=== PATIENT | female | born 1960 | race African-American/Black ===

== ENCOUNTER 2016-04-04 15:07 | Emergency (ER) | payer MEDICAID | END 2016-04-04 18:20 | disposition home or self-care (01) | LOC: D.ER 15:07 | DX: J34.0 Abscess, furuncle and carbuncle of nose (principal) ==

== ENCOUNTER 2016-04-06 09:42 | Emergency (ER) | payer MEDICAID ==
[2016-04-06 11:35] LABS: BASOPHILS 0.3 % (0.0-2.0); EOSINOPHILS 1.2 % (0-7); HEMOGLOBIN 11.4 g/dL (12-16); IMMATURE GRANULOCYTES 0.2 % (0-5); LYMPHOCYTES 10.9 % (15-50); MCHC 32.6 g/dL (31.0-37.0); MCV 82.7 fL (80.0-100.0); NEUTROPHILS 79.4 % (40-80); PLATELET COUNT 270 10x3/uL (130-400); RBC 4.23 10x6/uL (4.00-5.40); RDW 13.1 % (11.5-14.5); WBC 13.4 10x3/uL (4.8-10.8)
[2016-04-06 11:49] LABS: ALBUMIN 3.9 g/dL (3.4-5.0); ALKALINE PHOSPHATASE 128 U/L (46-116); ALT (SGPT) 34 U/L (10-68); BILIRUBIN - TOTAL 0.51 mg/dL (0.2-1.3); CALC OSMOLALITY 280 mosm/kg (275-300); CALCIUM 9.5 mg/dL (8.5-10.1); CARBON DIOXIDE 26.5 mmol/L (21.0-32.0); CHLORIDE - SERUM 105 mmol/L (98-107); CREATININE - SERUM 0.7 mg/dL (0.6-1.3); GLUCOSE 102 mg/dL (74-106); POTASSIUM - SERUM 3.9 mmol/L (3.5-5.1); PROTEIN - SERUM 7.8 g/dL (6.4-8.2); SODIUM 142 mmol/L (136-145); UREA NITROGEN 7 mg/dL (7-18); eGFR NON AFRICAN AMERICAN > 90 mL/min (90-120)
== END 2016-04-06 15:42 | disposition home or self-care (01) ==
LOC: D.ER 09:42
PROVIDERS: Nurse Practitioner Family
DX: L03.211 Cellulitis of face (principal); F32.9 Major depressive disorder, single episode, unspecified

== ENCOUNTER → 2016-05-13 10:20 | Outpatient (CLI) | payer MEDICAID | END | disposition home or self-care (01) | LOC: D.CT 10:20 | DX: L03.90 Cellulitis, unspecified (principal) ==

== ENCOUNTER → 2016-10-05 10:11 | Outpatient (CLI) | payer OTHER | END | disposition home or self-care (01) | LOC: D.RAD 10:11 | DX: Z02.71 Encounter for disability determination (principal) ==

== ENCOUNTER 2017-05-26 14:36 | Emergency (ER) | payer MEDICAID ==
[2017-05-26 15:25] LABS: BASOPHILS 0.6 % (0-2); EOSINOPHILS 0.8 % (0-7); HEMATOCRIT 36.7 % (36.0-48.0); HEMOGLOBIN 12.1 g/dL (12-16); IMMATURE GRANULOCYTES 0.2 % (0-5); LYMPHOCYTES 19.6 % (15-50); MCH 26.9 pg (26.0-34.0); MCV 81.6 fL (80.0-100.0); MEAN PLATELET VOLUME 11.1 fL (7.4-10.4); MONOCYTES 8.1 % (2-11); NEUTROPHILS 70.7 % (40-80); PLATELET COUNT 240 10x3/uL (130-400); RDW 13.1 % (11.5-14.5); WBC 8.5 10x3/uL (4.8-10.8)
[2017-05-26 15:44] LABS: ALBUMIN 4.4 g/dL (3.4-5.0); ALKALINE PHOSPHATASE 103 U/L (46-116); ALT (SGPT) 29 U/L (10-68); BILIRUBIN - TOTAL 0.38 mg/dL (0.2-1.3); CALC OSMOLALITY 274 mosm/kg (275-300); CALCIUM 9.5 mg/dL (8.5-10.1); CARBON DIOXIDE 26.2 mmol/L (21.0-32.0); CHLORIDE - SERUM 102 mmol/L (98-107); CREATININE - SERUM 0.6 mg/dL (0.6-1.3); GLUCOSE 98 mg/dL (74-106); POTASSIUM - SERUM 4.9 mmol/L (3.5-5.1); PROTEIN - SERUM 8.2 g/dL (6.4-8.2); SODIUM 138 mmol/L (136-145); UREA NITROGEN 9 mg/dL (7-18); eGFR NON AFRICAN AMERICAN > 90 mL/min (90-120)
[2017-05-26 16:09] LABS: CKMB 0.5 U/L (0.0-3.6); CREATINE KINASE 156 UL (21-215)
[2017-05-26 16:10] LABS: TROPONIN-I < 0.017 ng/mL (0.000-0.060)
== END 2017-05-26 18:42 | disposition home or self-care (01) ==
LOC: D.ER 14:36
PROVIDERS: Emergency Medicine; Physician Assistant
DX: R07.81 Pleurodynia (principal); J06.9 Acute upper respiratory infection, unspecified; J40 Bronchitis, not specified as acute or chronic; M06.9 Rheumatoid arthritis, unspecified

== ENCOUNTER 2017-11-09 17:55 | Emergency (ER) | payer SELFPAY ==
[~2017-11-09] VITALS: Ht 154.9 cm; Wt 53.6 kg
[2017-11-09 18:05] VITALS: Ht 154.9 cm; Wt 53.6 kg
[2017-11-09] MEDS ORDERED: ARAVA10 MG PO (18:06)
[2017-11-09] MEDS ORDERED: ZANAFLEX4 MG PO (18:06)
[2017-11-09] MEDS ORDERED: ENBREL25 MG/0.5 SQ (18:07)
[2017-11-09] MEDS ORDERED: ULTRAM50 MG PO (18:07)
[2017-11-09 19:37] LABS: BASOPHILS 0.2 % (0-2); HEMATOCRIT 35.7 % (36.0-48.0); HEMOGLOBIN 11.9 g/dL (12-16); IMMATURE GRANULOCYTES 0.3 % (0-5); LYMPHOCYTES 12.3 % (15-50); MCH 27.3 pg (26.0-34.0); MCHC 33.3 g/dL (31.0-37.0); MCV 81.9 fL (80.0-100.0); MEAN PLATELET VOLUME 10.5 fL (7.4-10.4); MONOCYTES 6.5 % (2-11); NEUTROPHILS 77.7 % (40-80); PLATELET COUNT 234 10x3/uL (130-400); RBC 4.36 10x6/uL (4.00-5.40); RDW 13.2 % (11.5-14.5); WBC 13.2 10x3/uL (4.8-10.8)
[2017-11-09 20:07] LABS: ALBUMIN 4.4 g/dL (3.4-5.0); ALKALINE PHOSPHATASE 115 U/L (46-116); ALT (SGPT) 13 U/L (10-68); BILIRUBIN - TOTAL 0.27 mg/dL (0.2-1.3); CALC OSMOLALITY 283 mosm/kg (275-300); CALCIUM 9.5 mg/dL (8.5-10.1); CARBON DIOXIDE 25.5 mmol/L (21.0-32.0); CHLORIDE - SERUM 107 mmol/L (98-107); CREATININE - SERUM 0.8 mg/dL (0.6-1.3); GLUCOSE 102 mg/dL (74-106); POTASSIUM - SERUM 3.5 mmol/L (3.5-5.1); PROTEIN - SERUM 8.1 g/dL (6.4-8.2); SODIUM 143 mmol/L (136-145); UREA NITROGEN 11 mg/dL (7-18); eGFR NON AFRICAN AMERICAN 79 mL/min (90-120)
[2017-11-09 20:13] LABS: AMYLASE - SERUM 68 U/L (25-115); C-REACTIVE PROTEIN 0.6 mg/dL (0.0-0.9); CKMB 0.7 U/L (0.0-3.6); CREATINE KINASE 95 UL (21-215); LIPASE 101 U/L (73-393); PRO BNP 64 pg/mL (0-125); THYROID STIMULATING HORMONE 2.21 uIU/mL (0.36-3.74)
[2017-11-09 20:18] LABS: TROPONIN-I < 0.017 ng/mL (0.000-0.060)
[2017-11-09 22:16] LABS: APPEARANCE CLEAR (CLEAR); BILIRUBIN NEGATIVE (NEGATIVE); COLOR YELLOW (YELLOW); GLUCOSE NEGATIVE (NEGATIVE); KETONE NEGATIVE (NEGATIVE); NITRITE NEGATIVE (NEGATIVE); PROTEIN NEGATIVE (NEGATIVE); SPECIFIC GRAVITY 1.015 (1.005-1.020); UROBILINOGEN NORMAL (NORMAL)
[2017-11-09 22:17] LABS: BACTERIA FEW /hpf (NONE SEEN); EPITHELIAL CELLS 0-5 /hpf (0-5); RED CELLS - URINE 0-5 /hpf (0-5)
[2017-11-09 22:31] LABS: UDS - AMPHET NEGATIVE QUAL (NEGATIVE); UDS - BARB NEGATIVE QUAL (NEGATIVE); UDS - BENZO NEGATIVE QUAL (NEGATIVE); UDS - COCAINE NEGATIVE QUAL (NEGATIVE); UDS - OPIATE NEGATIVE QUAL (NEGATIVE); UDS - PCP NEGATIVE QUAL (NEGATIVE); UDS - THC POSITIVE QUAL (NEGATIVE)
[2017-11-10 02:27] VITALS: BP 145/79
[2017-11-10] MEDS ORDERED: TORADOL10 MG PO (23:22)
== END 2017-11-10 02:25 | disposition home or self-care (01) ==
LOC: D.ER 17:55
PROVIDERS: Emergency Medicine; Family Medicine
DX: S43.402A Unspecified sprain of left shoulder joint, initial encounter (principal); W18.30XA Fall on same level, unspecified, initial encounter; Y93.89 Activity, other specified; Y92.019 Unspecified place in single-family (private) house as the place of occurrence of the external cause

== ENCOUNTER 2017-11-10 20:26 | Emergency (ER) | payer SELFPAY ==
[~2017-11-10] VITALS: Ht 154.9 cm; Wt 63.6 kg
[~2017-11-10 20:26] MED LIST: ARAVA10 MG PO; ENBREL25 MG/0.5 SQ; ULTRAM50 MG PO; ZANAFLEX4 MG PO
[2017-11-10 20:55] VITALS: Ht 154.9 cm; Wt 63.6 kg
[2017-11-10 22:07] LABS: BASOPHILS 0.2 % (0-2); EOSINOPHILS 5.4 % (0-7); HEMATOCRIT 32.9 % (36.0-48.0); HEMOGLOBIN 10.8 g/dL (12-16); IMMATURE GRANULOCYTES 0.2 % (0-5); LYMPHOCYTES 20.6 % (15-50); MCH 26.9 pg (26.0-34.0); MCHC 32.8 g/dL (31.0-37.0); MEAN PLATELET VOLUME 10.5 fL (7.4-10.4); MONOCYTES 7.6 % (2-11); PLATELET COUNT 246 10x3/uL (130-400); RBC 4.01 10x6/uL (4.00-5.40); RDW 13.3 % (11.5-14.5)
[2017-11-10 22:11] LABS: ALBUMIN 3.9 g/dL (3.4-5.0); ALKALINE PHOSPHATASE 94 U/L (46-116); ALT (SGPT) 15 U/L (10-68); BILIRUBIN - TOTAL 0.28 mg/dL (0.2-1.3); CALC OSMOLALITY 282 mosm/kg (275-300); CALCIUM 8.6 mg/dL (8.5-10.1); CARBON DIOXIDE 27.3 mmol/L (21.0-32.0); CHLORIDE - SERUM 106 mmol/L (98-107); CREATININE - SERUM 0.7 mg/dL (0.6-1.3); GLUCOSE 101 mg/dL (74-106); POTASSIUM - SERUM 3.2 mmol/L (3.5-5.1); PROTEIN - SERUM 7.2 g/dL (6.4-8.2); SODIUM 143 mmol/L (136-145); eGFR NON AFRICAN AMERICAN > 90 mL/min (90-120)
[2017-11-10 22:14] LABS: UREA NITROGEN 8 mg/dL (7-18)
[2017-11-10 22:58] LABS: APPEARANCE SL CLDY (CLEAR); BILIRUBIN NEGATIVE (NEGATIVE); COLOR YELLOW (YELLOW); GLUCOSE NEGATIVE (NEGATIVE); KETONE NEGATIVE (NEGATIVE); NITRITE NEGATIVE (NEGATIVE); PROTEIN NEGATIVE (NEGATIVE); SPECIFIC GRAVITY 1.015 (1.005-1.020); UROBILINOGEN NORMAL (NORMAL)
[2017-11-10 22:59] LABS: BACTERIA MODERATE /hpf (NONE SEEN); EPITHELIAL CELLS 0-5 /hpf (0-5); RED CELLS - URINE 0-5 /hpf (0-5)
[2017-11-10] MEDS ORDERED: TORADOL10 MG PO (23:22)
[2017-11-11 00:04] VITALS: BP 142/91
== END 2017-11-11 00:04 | disposition home or self-care (01) ==
LOC: D.ER 20:26
PROVIDERS: Emergency Medicine
DX: S43.402A Unspecified sprain of left shoulder joint, initial encounter (principal); W18.30XA Fall on same level, unspecified, initial encounter; Y93.89 Activity, other specified; Y92.019 Unspecified place in single-family (private) house as the place of occurrence of the external cause

== ENCOUNTER → 2018-01-21 19:11 | Outpatient (CLI) | payer MEDICAID ==
[2017-11-10 20:55] VITALS: BMI 26.5
[~2018-01-21 19:11] MED LIST changes: +TORADOL10 MG PO; +ZOLOFT50 MG PO
[2018-01-27 08:00] VITALS: BMI 25.5
== END | disposition home or self-care (01) ==
LOC: D.LABREF 19:11
DX: R31.9 Hematuria, unspecified (principal)

== ENCOUNTER → 2018-01-27 07:25 | Day surgery (SDC) | payer MEDICAID ==
[2018-01-26 08:33] LABS: HEMATOCRIT 36.5 % (36.0-48.0); HEMOGLOBIN 11.9 g/dL (12-16); MCH 27.8 pg (26.0-34.0); MCHC 32.6 g/dL (31.0-37.0); MCV 85.3 fL (80.0-100.0); MEAN PLATELET VOLUME 10.4 fL (7.4-10.4); RBC 4.28 10x6/uL (4.00-5.40); RDW 14.4 % (11.5-14.5); WBC 10.4 10x3/uL (4.8-10.8)
[~2018-01-27] VITALS: Ht 154.9 cm; Wt 61.2 kg
--- NOTE | ~2018-01-27 | OP ---
PATIENT NAME: OTTO OCONNELL MEDICAL RECORD: [id number] :62 LOCATION:.[facility]ERLY [facility] ADMISSION DATE: SURGEON: DICK FUCHS MD DATE OF OPERATION: 01/27/2018 SURGEON: Dick Fuchs MD ANESTHESIA: TIVA by Dr. Jame Guerrero. DIAGNOSES: Microscopic hematuria and interstitial cystitis. PROCEDURES: Cystoscopy and intravesical Rimso instillation. FINDINGS: Single ureteral orifices bilaterally. Diffuse bladder inflammation with glomerulations. No bladder tumors. BLOOD LOSS: None. CLINICAL HISTORY: This is a 57-year-old female, who was referred for microscopic hematuria. She has never seen any gross hematuria. She has to void every 40 minutes during the daytime and she has nocturia greater than 5. She has urgency without urge incontinence. She has suprapubic and lower back pain, which is worse just prior to voiding. The symptoms are exacerbated by her menstrual periods. This was before her hysterectomy in the . She also notes that coffee makes her symptoms much worse. She had urine cytology sent and this showed no tumor cells. She does have a CT scan of the abdomen and pelvis scheduled for the hematuria workup. Today, she comes for cystoscopy to complete the hematuria workup. If we see bladder inflammation suggestive of interstitial cystitis, I will proceed with treatment with intravesical Rimso. The patient is not allergic to any medications. She was given Ancef IV client onboarding analyst to the OR. DESCRIPTION OF PROCEDURE: The patient was given IV sedation. She was placed in the dorsal lithotomy position. A 17-Citizen [place] cystoscope with 30-degree lens was used for visualization. Findings are as outlined above. The patient actually reacted quite violently to having her bladder filled with saline. She started to try to move on the OR table while she was sedated. The bladder was emptied through the cystoscope sheath and then the scope was removed. We then inserted the 14-Citizen [place] red rubber catheter and inserted the 50 mL of Rimso solution into the bladder. The catheter was removed, leaving the solution in place. The patient will hold the solution in for 15 minutes and then void it out. She will be seen in the office next week to have treatment #2 given to her. TRANSINT:[id number] Voice Confirmation ID: [id number] DOCUMENT ID: [id number] DICK FUCHS MD at 1143 CC: [id number] DICTATION DATE: 01/27/18 0947 POLE SHAVER HELPER: 01/27/18 1008 [address] [place] [id number] [place] [id number]
[2018-01-27 08:00] VITALS: BP 144/73; Ht 154.9 cm; Wt 61.2 kg
== END | disposition home or self-care (01) ==
LOC: D.OPS 07:25 → D.PAN 11:45 → D.OPS 11:45
PROVIDERS: Anesthesiology
DX: R31.29 Other microscopic hematuria (principal); N30.11 Interstitial cystitis (chronic) with hematuria; Z01.812 Encounter for preprocedural laboratory examination

== ENCOUNTER → 2018-03-28 08:30 | Outpatient (CLI) | payer MEDICAID ==
[2018-01-27 08:00] VITALS: BMI 25.5
[~2018-03-28 08:30] MED LIST changes: +LOPRESSOR25 MG PO
== END | disposition home or self-care (01) ==
LOC: D.HCCARDIO 08:30
DX: I20.9 Angina pectoris, unspecified (principal)

== ENCOUNTER 2018-04-01 10:27 | Outpatient (CLI) | payer MEDICAID ==
[~2018-04-01] VITALS: Ht 154.9 cm; Wt 60.9 kg
--- NOTE | ~2018-04-01 | HEMODYNAMI ---
PATIENT:OTTO OCONNELL MEDICAL RECORD: [id number] : 62 LOCATION:[facility] ADMISSION DATE: 04/01/18 Generatedon:04/01/201813:17 Patient name: OTTO OCONNELL Patient #: [id number] SSN: : 1960 Date of study: 04/01/2018 Page: Of Hemodynamic Procedure Report Patient Data Patient Demographics Procedure consent was obtained First Name: OTTO Gender: Female Last Name: ANISH : 1960 [facility] Initial: L Age: 57 year(s) Patient #: [id number] Race: Black Additional ID: [id number] Contact details Address: [address] [place] [address] State: [place] [facility] [place]: [address] Admission Admission Data Admission Date: 04/01/2018 Admission Time: 10:27 Weight (lbs.): 134.48 Weight (kg.): 61 Lab Results Lab Result Date: 04/01/2018 Lab Result Time: 0:00 Biochemistry Name Units Result Min Max BUN mg/dl 14 --(--*-)-- 7 18 Creatinine mg/dl 0.7 --(*---)-- 0.6 1.3 CBC Name Units Result Min Max Hemoglobin g/dl 12.2 *-(----)-- 13.5 17.5 Procedure Procedure Types Cath Procedure Diagnostic Procedure C [facility] w/Coronaries Procedure Description Procedure Date Procedure Date: 04/01/2018 Procedure Start Time: 13:00 Procedure End Time: 13:13 Procedure Staff Name Function Neville Castro RT Monitor Tete Stack RT Scrub Saumya Moya RN Nurse Juan Goldberg RN Sole Rounder Arnav Alfonso MD Performing Physician Procedure Data Cath Procedure Fluoroscopy Diagnostic fluoroscopy Total fluoroscopy Time: 1.6 time: 1.6 min min Diagnostic fluoroscopy Total fluoroscopy dose: 263 dose: 263 mGy mGy Contrast Material Contrast Material Type Amount (ml) Isovue 300 54 Entry Location Entry Primary Successful Side Size Upsize Upsize Entry Closure Avilez ccessful Closure Location (Fr) 1 (Fr) 2 (Fr) Remarks Device Remarks Radial Right 6 Fr Mechanical artery Short Compression Estimated blood loss: 10 ml Diagnostic catheters Device Type Used For End Catheter Placement DIAGNOSTIC Elbridge 110cm 5 Procedure Fr catheter ([id number]) Procedure Complications No complications Procedure Medications Medication Administration Route Dosage Oxygen etCO2 Nasal cannula 2 l/min Lidocaine 2% added to field 20 Heparin Flush Bag added to field 2 bags (1000units/500ml NS) 0.9% NaCl I.V. 100 ml/hr Radial Cocktail added to field 1 syringe (Verapomil 2mg/Nitro 400mcg/Heparin 1500units) Versed I.V. 2 mg Fentanyl I.V. 50 mcg Versed I.V. 2 mg Fentanyl I.V. 50 mcg Versed I.V. 1 mg Fentanyl I.V. 50 mcg Versed I.V. 1 mg Fentanyl I.V. 50 mcg Hemodynamics Rest HGB: 12.2 (g/dl) Heart Rate: 78 (bpm) Pressure Samples Time Site Value (mmHg) Purpose Heart Use Rate(bpm) 13:05 LV 119/-6,8 Snapshot 84 13:06 AO 91/49(70) Pullback 89 13:06 LV 116/-4,5 Pullback 89 13:07 AO 87/54(69) Snapshot 82 Gradients Valve Time Site 1 Site 2 Mean SEP/DFP Peak To Heart Use (mmHg) (sec/min) Peak Rate (mmHg) (bpm) Aortic 13:06 LV AO 21 10 25 89 116/-4,5 91/49(70) Calculations Valve P-P Mean Valve Index Valve Source Name Gradient Area Flow (cm2) Aortic 25 21 25 21 Snapshots Pre Cath Intra NCS Post Cath Vital Signs Time Heart Resp SPO2 etCO2 NIBP (mmHg) Rhythm Pain Sedation Rate (ipm) (%) (mmHg) Status Level (bpm) 12:52:32 83 16 92 35.8 123/87(106) NSR 0 (11) 10(A) , No pain 12:56:33 77 19 99 0 123/84(103) NSR 0 (11) 10(A) , No pain 13:00:39 72 19 99 32.8 121/71(98) NSR 0 (11) 10(A) , No pain 13:04:45 82 17 98 24.6 97/68(79) NSR 0 (11) 9(A) , No pain 13:08:47 79 15 96 30.5 97/58(77) NSR 0 (11) 9(A) , No pain 13:12:48 77 16 97 35 100/58(75) NSR 0 (11) 10(A) , No pain Medications Time Medication Route Dose Verified Delivered Reason Notes Effectiveness by by 12:52:06 Oxygen etCO2 2 l/min Arnav Buffie used for Nasal Kaden Moya RN procedure cannula 12:53:07 Lidocaine 2% added 20ml Arnav Ranav for to vial Kaden Alfonso MD vasodilation field 12:53:15 Heparin Flush added 2 bags Arnav Arnav used for Bag to Kaden Alfonso MD procedure (1000units/500ml field NS) 12:53:27 0.9% NaCl I.V. 100 Arnav Buffie Per ml/hr Kaden Moya RN physician 12:54:57 Versed I.V. 2 mg Arnav Buffie for sedation Kaden Moya RN 12:55:02 Fentanyl I.V. 50 mcg Arnav Buffie for sedation Kaden Moya RN 13:00:02 Versed I.V. 2 mg Arnav Buffie for sedation Kaden Moya RN 13:00:05 Fentanyl I.V. 50 mcg Arnav Buffie for sedation Kaden Moya RN 13:04:37 Versed I.V. 1 mg Arnav Buffie for sedation Kaden Moya RN 13:04:41 Fentanyl I.V. 50 mcg Arnav Buffie for sedation Kaden Moya RN 13:04:45 Radial Cocktail added 1 Arnav Arnav for (Verapomil to syringe Kaden Alfonso MD vasodilation 2mg/Nitro field 400mcg/Heparin 1500units) 13:08:28 Versed I.V. 1 mg Arnav Buffie for sedation Kaden Moya RN 13:08:40 Fentanyl I.V. 50 mcg Arnav Buffie for sedation Kaden Moya RN Procedure Log Time Note 12:25:58 Juan Goldberg RN sent for patient. Start room use. 12:36:59 Time tracking: Regular hours (M-F 7:00 - 5:00) 12:37:03 Plan of Care:Hemodynamics will remain stable., Cardiac rhythm will remain stable., Comfort level will be maintained., Respiratory function will remain adequate., Patient/ family verbilizes understanding of procedure., Procedure tolerated without complication., Recovers from procedure without complications.. 12:39:22 Patient received from Pre/Post Procedure Room to CCL 2 Alert and oriented. Tansferred to table in Supine position. 12:39:23 Warm blankets applied, and levar hugger turned on for patient comfort. 12:39:24 Correct patient and procedure confirmed by team. 12:39:26 Signed procedure consent form obtained from patient. 12:39:26 ECG and BP/O2 sat monitors applied to patient. 12:51:27 Vital chart was started 12:51:30 Rhythm: sinus rhythm 12:51:32 Full Disclosure recording started 12:51:41 H&P Date Dictated: 03/16/2018 Within 30 days and on chart., H&P Addendum completed by physician on day of procedure. (MUST COMPLETE FOR ALL OUTPATIENTS). 12:51:42 Pre-procedure instructions explained to patient. 12:51:42 Pre-op teaching completed and patient verbalized understanding. 12:51:45 Family in waiting room. 12:51:46 Patient NPO since Midnight. 12:51:47 Is the patient allergic to Iodine/contrast media? No. 12:51:49 Is patient on blood thinner?No 12:51:51 Patient diabetic? No. 12:51:53 Patient not . Patient has had hysterectomy. 12:51:55 Previous problem with sedation/anesthesia? No ? 12:51:56 Snore? Yes 12:51:57 Sleep apnea? No 12:51:58 Deviated septum? No 12:51:59 Opens mouth fully? Yes 12:52:00 Sticks out tongue? Yes 12:52:02 Airway obstruction? No ? 12:52:04 Dentures? No ? 12:52:06 Oxygen 2 l/min etCO2 Nasal cannula was administered by Saumya Moya RN; used for procedure; 12:52:09 Pre procedure: right dorsailis pedis pulse 1+ Palpable, but thready & weak; easily obliterated 12:52:12 Modified Braulio's test Ulnar < 7 seconds 12:52:15 Patient pain scale 0/10 ?. 12:52:23 IV patent on arrival in left forearm with 0.9% NaCl at KVO. 12:52:25 Lab results completed and on chart. 12:52:28 Right Radial & Right Groin area was prepped with chlora-prep and draped in sterile fashion 12:52:29 Alarms reviewed by R. N. 12:52:29 Sharps counted by scrub and verified by R.N. 12:52:33 Use device set Radial Dx or PCI 12:52:37 Tegaderm 4 x 4 (1626W) opened to sterile field. 12:52:38 ACIST Manifold (15763) opened to sterile field. 12:52:38 ACIST Hand Control (34334) opened to sterile field. 12:52:39 ACIST Syringe (76844) opened to sterile field. 12:52:40 Medline Cath Pack ([id number]) opened to sterile field. 12:52:41 Bag Decanter (2002) opened to sterile field. 12:52:41 DIAGNOSTIC WIRE .035 260cm J wire (831190) opened to sterile field. 12:52:42 MBrace Wrist Support ([id number]) opened to sterile field. 12:52:42 NEEDLE Cook 21G 4cm Radial (O75801) opened to sterile field. 12:52:43 SHEATH 6FR Slender (57-7633) opened to sterile field. 12:53:07 Lidocaine 2% 20ml vial added to field was administered by Arnav Alfonso MD; for vasodilation; 12:53:15 Heparin Flush Bag (1000units/500ml NS) 2 bags added to field was administered by Arnav Alfonso MD; used for procedure; 12:53:27 0.9% NaCl 100 ml/hr I.V. was administered by Saumya Moya RN; Per physician; 12:53:51 --------ALL STOP TIME OUT------ 12:53:52 Final Timeout: patient, procedure, and site verified with staff and physician. All members of the team are in agreement. 12:53:54 Right groin site verified by team. 12:54:24 Physical assessment completed. ASA score P 2 - A patient with mild systemic disease as per Arnav Alfonso MD. 12:54:27 Sedation plan: IV Moderate Sedation Medication:Versed, Fentanyl 12:54:38 Baseline sample Acquired. 12:54:57 Versed 2 mg I.V. was administered by Saumya Moya RN; for sedation; 12:55:02 Fentanyl 50 mcg I.V. was administered by Saumya Moya RN; for sedation; 12:58:37 Lab Result : Hemoglobin 12.2 g/dl 12:58:37 Lab Result : Creatinine 0.7 mg/dl 12:58:37 Lab Result : BUN 14 mg/dl 12:58:50 Patient Weight : 134.48 lbs 13:00:02 Versed 2 mg I.V. was administered by Saumya Moya RN; for sedation; 13:00:05 Fentanyl 50 mcg I.V. was administered by Saumya Moya RN; for sedation; 13:00:46 Procedure started. 13:00:51 Local anesthetic to right radial artery with Lidocaine 2% by Arnav Alfonso MD.INITIAL ACCESS ONLY 13:03:39 A 6 Fr Short sheath was inserted into the Right Radial artery 13:04:37 Versed 1 mg I.V. was administered by Saumya Moya RN; for sedation; 13:04:41 Fentanyl 50 mcg I.V. was administered by Saumya Moya RN; for sedation; 13:04:45 Radial Cocktail (Verapomil 2mg/Nitro 400mcg/Heparin 1500units) 1 syringe added to field was administered by Arnav Alfonso MD; for vasodilation; 13:04:46 A DIAGNOSTIC Elbridge 110cm 5 Fr catheter ([id number]) was advanced over the wire and used for Procedure. 13:06:06 LV angiography performed. 13:06:14 LV gram done using ROBERTO 13:06:20 EF : 60 % 13:06:22 LV hemodynamics recorded. 13:06:26 Injector settings: Ml/sec: 5, Volume: 15, 13:06:48 LCA angiography performed. 13:08:04 RCA angiography performed. 13:08:28 Versed 1 mg I.V. was administered by Saumya Moya RN; for sedation; 13:08:40 Fentanyl 50 mcg I.V. was administered by Saumya Moya RN; for sedation; 13:09:11 Catheter removed. 13:09:12 TR BAND Standard ([id number]) opened to sterile field. 13:09:22 Sheath removed intact; hemostasis achieved with Mechanical Compression to the Right Radial artery. 13:09:25 Procedure ended.(Physican Out) 13:10:39 Fluoroscopy time 01.60 minutes. 13:10:44 Fluoroscopy dose: 263 mGy 13:10:44 Flurop Dose total: 263 13:10:48 Contrast amount:Isovue 300 54ml. 13:10:49 Sharps counted by scrub and verified by R.N. 13:10:51 Insertion/operative site no bleeding no hematoma. 13:10:52 TR band inflated with 10cc of air. 13:10:56 Post Procedure Pulses reassessed and unchanged 13:10:59 Post-procedure physical assessment completed. ASA score P 2 - A patient with mild systemic disease as per Arnav Alfonso MD. 13:11:01 Post procedure rhythm: unchanged. 13:11:04 Estimated blood loss: 10 ml 13:11:05 Post procedure instruction explained to patient.Patient verbalizes understanding. 13:11:06 Patient needs reinforcement of post procedure teaching. 13:12:02 Procedure and supply charges have been captured, reviewed, submitted and are correct. 13:12:05 Procedure Complication : No complications 13:12:16 Vital chart was stopped 13:12:16 See physician's report for complete and final results. 13:13:11 Report given to Pre/Post Procedure Room. 13:13:15 Patient transfered to Pre/Post Procedure Room with Stretcher. 13:13:18 Procedure ended. 13:13:18 Full Disclosure recording stopped 13:15:15 End room use (Document Last) Device Usage Item Name Manufacture Quantity Catalog Hospital Part Current Minimal Lot# / Number Charge Number Stock Stock Serial# Code Tegaderm 4 3M 1 1626W [id number] 984966 413581 5 x 4 (1626W) ACIST Acist 1 59035 453584 057082 123688 5 Manifold Medical (81471) Systems Inc ACIST Hand Acist 1 04220 575289 045959 843316 5 Control Medical (44001) Systems Inc ACIST Acist 1 40308 044173 712114 807824 20 Syringe Medical (94985) Systems Inc Medline Medline 1 [id number] 526204 40886 981232 5 Cath Pack ([id number]) Bag Microtek 1 2001S 822551 05594 978267 5 Decanter Medical Inc. () DIAGNOSTIC St Devendra 1 596136 851979 346822 492761 30 WIRE .035 260cm J wire (550046) MBrace Advanced 1 140-0250-00 568582 23595 749206 5 Wrist Vascular Support Dynamics ([id number]) NEEDLE Cook Cook Medical 1 Q11183 593914 651392 847386 5 21G 4cm Radial (H94581) SHEATH 6FR Terumo 1 [id number] 824593 919747 073975 5 Slender (80-1060) DIAGNOSTIC Terumo 1 40-1713 737863 627670 069539 5 Elbridge 110cm 5 Fr catheter (528466) TR BAND Terumo 1 [id number] 166473 837538 848079 40 Standard ([id number]) Signature Audit [place] Stage Time Signature Unsigned Intra-Procedure 04/01/2018 Neville Castro 1:17:31 PM RT(R) Signatures Monitor : Neville Castro RT Signature : Date : Time : [place] [id number] [place] [address]
[~2018-04-01 10:27] MED LIST changes: -LOPRESSOR25 MG PO
[2018-04-01 10:50] VITALS: BP 156/99; Ht 154.9 cm; Wt 60.9 kg
[2018-04-01] MEDS ORDERED: LOPRESSOR25 MG PO (10:53)
[2018-04-01 11:06] LABS: BASOPHILS 0.7 % (0-2); HEMATOCRIT 36.7 % (36.0-48.0); HEMOGLOBIN 12.2 g/dL (12-16); IMMATURE GRANULOCYTES 0.1 % (0-5); LYMPHOCYTES 22.8 % (15-50); MCH 27.8 pg (26.0-34.0); MCHC 33.2 g/dL (31.0-37.0); MCV 83.6 fL (80.0-100.0); MEAN PLATELET VOLUME 10.6 fL (7.4-10.4); MONOCYTES 5.2 % (2-11); NEUTROPHILS 68.2 % (40-80); PLATELET COUNT 282 10x3/uL (130-400); RBC 4.39 10x6/uL (4.00-5.40); RDW 13.2 % (11.5-14.5); WBC 7.6 10x3/uL (4.8-10.8)
[2018-04-01 11:12] LABS: CALC OSMOLALITY 283 mosm/kg (275-300); CALCIUM 9.4 mg/dL (8.5-10.1); CARBON DIOXIDE 26.5 mmol/L (21.0-32.0); CHLORIDE - SERUM 104 mmol/L (98-107); CREATININE - SERUM 0.7 mg/dL (0.6-1.3); GLUCOSE 98 mg/dL (74-106); POTASSIUM - SERUM 3.8 mmol/L (3.5-5.1); SODIUM 142 mmol/L (136-145); UREA NITROGEN 14 mg/dL (7-18); eGFR NON AFRICAN AMERICAN > 90 mL/min (90-120)
--- NOTE | 2018-04-01 13:45 | NUR ---
PT SLEEPING, RESP WITH EASE. TR BAND IS CDI, FINGERS WARM CAN CAP REFILL IS BRISK. SINUS RIZWAN AT 58, BP IS 122/67 NO FAMILY AT BEDSIDE, CALL LIGHT IN REACH.
--- NOTE | 2018-04-01 14:07 | NUR ---
PT ALERT, DENIES ANY C/O. SANDWICH AND PO FLUIDS SERVED. TR BAND IS CDI, FINGERS WARM AND CAP REFILL IS BRISK. VSS. CALL LIGHT IN REACH.
--- NOTE | 2018-04-01 14:21 | NUR ---
PT IS ALERT, DENIES ANY C/O. TR BAND IS CDI, 3 CC OF AIR WEANED FROM TR BAND WITH NO BLEEDING NOTED. FINGERS WARM AND CAP REFILL IS BRISK. PT C/O HEADACHE, REQUESTS PAIN MEDICATION FOR THIS AND ORDER OBTAINED FOR NORCO 10MG ONE TABLET PO.
--- NOTE | 2018-04-01 17:09 | NUR ---
1435 3 CC OF AIR WEANED FROM TR BAND WITH NO BLEEDING. FINGERS WARM AND CAP REFILL IS BRISK. 1450 ALL REMAINING AIR WEANED FROM TR BAND WITH NO BLEEDING NOTED. FINGERS WARM AND CAP REFILL IS BRISK. VSS. PT HAS TOLERATED SANDWICH AND PO FLUIDS WITH NO C/O NAUSEA. 1510 TR BAND REMOVED AND 2X2, TEGADERM PLACED TO SITE. IV DC'D WITH CATH INTACT AND PT IS DRESSING FOR DC TO HOME WITH ASSIST. 1530 DC INSTRUCTIONS REVIEWED WITH PT AND MOTHER WHO VERBALIZE UNDERSTANDING. PT ESCORTED TO PRIVATE AUTO VIA WC BY NURSE WITH FATHER DRIVING HER HOME.
== END 2018-04-01 15:30 | disposition home or self-care (01) ==
LOC: D.CATH 10:27
PROVIDERS: Internal Medicine Cardiovascular Disease
DX: I25.110 Atherosclerotic heart disease of native coronary artery with unstable angina pectoris (principal); R94.30 Abnormal result of cardiovascular function study, unspecified

== ENCOUNTER 2018-06-19 14:53 | Emergency (ER) | payer MEDICAID ==
[~2018-06-19] VITALS: Ht 154.9 cm; Wt 60.0 kg
[~2018-06-19 14:53] MED LIST changes: +LOPRESSOR25 MG PO
[2018-06-19 14:55] VITALS: Ht 154.9 cm; Wt 60.0 kg
[2018-06-19 16:07] LABS: COLOR YELLOW (YELLOW)
[2018-06-19 16:08] LABS: APPEARANCE CLEAR (CLEAR); BACTERIA FEW /hpf (NONE SEEN); BILIRUBIN NEGATIVE (NEGATIVE); GLUCOSE NEGATIVE (NEGATIVE); KETONE NEGATIVE (NEGATIVE); NITRITE NEGATIVE (NEGATIVE); PROTEIN 1+ mg/dL (NEGATIVE); RED CELLS - URINE 0-5 /hpf (0-5); UROBILINOGEN NORMAL (NORMAL); WHITE CELLS - URINE OCC /hpf (0-5)
[2018-06-19 16:48] LABS: ALBUMIN 4.8 g/dL (3.4-5.0); ALKALINE PHOSPHATASE 102 U/L (46-116); ALT (SGPT) 23 U/L (10-68); BILIRUBIN - TOTAL 0.26 mg/dL (0.2-1.3); CALC OSMOLALITY 284 mosm/kg (275-300); CALCIUM 9.5 mg/dL (8.5-10.1); CARBON DIOXIDE 27.5 mmol/L (21.0-32.0); CHLORIDE - SERUM 102 mmol/L (98-107); CREATININE - SERUM 0.6 mg/dL (0.6-1.3); GLUCOSE 85 mg/dL (74-106); POTASSIUM - SERUM 3.9 mmol/L (3.5-5.1); PROTEIN - SERUM 8.1 g/dL (6.4-8.2); SODIUM 143 mmol/L (136-145); UREA NITROGEN 14 mg/dL (7-18); eGFR NON AFRICAN AMERICAN > 90 mL/min (90-120)
[2018-06-19 18:07] LABS: BASOPHILS 0.5 % (0-2); EOSINOPHILS 2.1 % (0-7); HEMATOCRIT 33.9 % (36.0-48.0); HEMOGLOBIN 11.2 g/dL (12-16); IMMATURE GRANULOCYTES 0.1 % (0-5); MCH 27.5 pg (26.0-34.0); MCV 83.3 fL (80.0-100.0); MEAN PLATELET VOLUME 10.4 fL (7.4-10.4); MONOCYTES 6.2 % (2-11); NEUTROPHILS 66.1 % (40-80); PLATELET COUNT 277 10x3/uL (130-400); RBC 4.07 10x6/uL (4.00-5.40); RDW 13.4 % (11.5-14.5); WBC 8.8 10x3/uL (4.8-10.8)
[2018-06-19 18:36] VITALS: BP 168/81
== END 2018-06-19 18:37 | disposition home or self-care (01) ==
LOC: D.ER 14:53
PROVIDERS: Family Medicine
DX: M54.5 Low back pain (principal); M54.2 Cervicalgia; W18.30XA Fall on same level, unspecified, initial encounter; Y93.89 Activity, other specified; Y92.89 Other specified places as the place of occurrence of the external cause

== ENCOUNTER 2018-08-27 04:18 | Observation (INO) | payer MEDICAID | END 2018-08-30 14:19 | disposition home or self-care (01) | LOC: D.ER 04:18 → D.M2 06:22 | PROVIDERS: ADMIT Emergency Medicine | DX: K21.0 Gastro-esophageal reflux disease with esophagitis (principal); K25.9 Gastric ulcer, unspecified as acute or chronic, without hemorrhage or perforation; I10 Essential (primary) hypertension; D64.9 Anemia, unspecified; F41.9 Anxiety disorder, unspecified; F32.9 Major depressive disorder, single episode, unspecified; M19.90 Unspecified osteoarthritis, unspecified site ==

== ENCOUNTER 2018-12-08 21:02 | Emergency (ER) | payer MEDICAID ==
[~2018-12-08] VITALS: Ht 154.9 cm; Wt 56.8 kg
[~2018-12-08 21:02] MED LIST changes: +BUTALB-APAP-CA1 EACH PO; +CARAFATE1 G PO; +MECLIZINE HCL25 MG PO; +PROTONIX40 MG PO; +TOPAMAX50 MG PO
[2018-12-08 21:06] VITALS: Ht 154.9 cm; Wt 56.8 kg
[2018-12-08 22:26] VITALS: BP 127/72
== END 2018-12-08 22:26 | disposition home or self-care (01) ==
LOC: D.ER 21:02
DX: R51 Headache (principal)

== ENCOUNTER 2018-12-29 20:00 | Emergency (ER) | payer MEDICAID ==
[~2018-12-29] VITALS: Ht 154.9 cm; Wt 57.7 kg
[2018-12-29 20:36] VITALS: Ht 154.9 cm; Wt 57.7 kg
[2018-12-30 00:30] VITALS: BP 148/92
== END 2018-12-30 00:16 | disposition home or self-care (01) ==
LOC: D.ER 20:00
DX: G43.909 Migraine, unspecified, not intractable, without status migrainosus (principal)

== ENCOUNTER 2019-05-21 22:52 | Emergency (ER) | payer SELFPAY ==
[~2019-05-21] VITALS: Ht 154.9 cm; Wt 57.6 kg
[2019-05-21 23:00] VITALS: Ht 154.9 cm; Wt 57.6 kg
[2019-05-21 23:19] LABS: BASOPHILS 0.4 % (0-2); EOSINOPHILS 2.8 % (0-7); HEMATOCRIT 33.4 % (36.0-48.0); HEMOGLOBIN 10.9 g/dL (12-16); IMMATURE GRANULOCYTES 0.3 % (0-5); LYMPHOCYTES 29.5 % (15-50); MCH 27.5 pg (26.0-34.0); MCHC 32.6 g/dL (31.0-37.0); MCV 84.3 fL (80.0-100.0); MEAN PLATELET VOLUME 9.7 fL (7.4-10.4); MONOCYTES 6.7 % (2-11); NEUTROPHILS 60.3 % (40-80); PLATELET COUNT 283 10x3/uL (130-400); RBC 3.96 10x6/uL (4.00-5.40); RDW 13.3 % (11.5-14.5); WBC 7.6 10x3/uL (4.8-10.8)
[2019-05-21 23:25] LABS: CALC OSMOLALITY 281 mosm/kg (275-300); CALCIUM 8.8 mg/dL (8.5-10.1); CARBON DIOXIDE 29.1 mmol/L (21.0-32.0); CHLORIDE - SERUM 105 mmol/L (98-107); CREATININE - SERUM 0.8 mg/dL (0.6-1.3); GLUCOSE 93 mg/dL (74-106); POTASSIUM - SERUM 3.3 mmol/L (3.5-5.1); SODIUM 141 mmol/L (136-145); UREA NITROGEN 14 mg/dL (7-18); eGFR NON AFRICAN AMERICAN 78 mL/min (90-120)
[2019-05-21 23:26] LABS: APTT 29.4 SECONDS (22.8-39.4); INR 0.94 (0.85-1.17); PROTIME 12.6 SECONDS (11.6-15.0)
[2019-05-21 23:54] LABS: ALBUMIN 3.9 g/dL (3.4-5.0); ALKALINE PHOSPHATASE 77 U/L (30-120); ALT (SGPT) 24 U/L (10-68); BILIRUBIN - TOTAL 0.28 mg/dL (0.2-1.3); CKMB 0.4 U/L (0.0-3.6); CREATINE KINASE 99 UL (21-215); PROTEIN - SERUM 7.1 g/dL (6.4-8.2)
[2019-05-21 23:58] LABS: TROPONIN-I < 0.017 ng/mL (0.000-0.060)
[2019-05-22 01:19] VITALS: BP 139/81
== END 2019-05-22 01:20 | disposition home or self-care (01) ==
LOC: D.ER 22:52
PROVIDERS: Family Medicine
DX: R07.9 Chest pain, unspecified (principal); R55 Syncope and collapse; I49.8 Other specified cardiac arrhythmias

== ENCOUNTER 2019-11-14 21:18 | Emergency (ER) | payer MEDICARE, MEDICAID ==
[~2019-11-14] VITALS: Ht 154.9 cm; Wt 59.1 kg
[~2019-11-14 21:18] MED LIST changes: +AUGMENTIN 875-11 TAB PO
[2019-11-14 21:40] VITALS: Ht 154.9 cm; Wt 59.1 kg
[2019-11-14] MEDS ORDERED: TOPAMAX100 MG PO (21:45)
[2019-11-14] MEDS ORDERED: NORVASC5 MG PO (21:45)
[2019-11-14] MEDS ORDERED: BUTALB-APAP-CA1 EACH PO (21:46)
[2019-11-14 21:57] LABS: BASOPHILS 0.3 % (0-2); EOSINOPHILS 1.4 % (0-7); HEMATOCRIT 38.5 % (36.0-48.0); HEMOGLOBIN 12.6 g/dL (12-16); IMMATURE GRANULOCYTES 0.2 % (0-5); LYMPHOCYTES 15.6 % (15-50); MCH 28.2 pg (26.0-34.0); MCHC 32.7 g/dL (31.0-37.0); MCV 86.1 fL (80.0-100.0); MEAN PLATELET VOLUME 9.9 fL (7.4-10.4); MONOCYTES 8.4 % (2-11); NEUTROPHILS 74.1 % (40-80); PLATELET COUNT 310 10x3/uL (130-400); RBC 4.47 10x6/uL (4.00-5.40); RDW 13.6 % (11.5-14.5); WBC 9.1 10x3/uL (4.8-10.8)
[2019-11-14 22:25] LABS: CALC OSMOLALITY 277 mosm/kg (275-300); CALCIUM 9.1 mg/dL (8.5-10.1); CARBON DIOXIDE 24.4 mmol/L (21.0-32.0); CHLORIDE - SERUM 105 mmol/L (98-107); CREATININE - SERUM 0.9 mg/dL (0.6-1.3); GLUCOSE 106 mg/dL (74-106); POTASSIUM - SERUM 3.6 mmol/L (3.5-5.1); SODIUM 140 mmol/L (136-145); UREA NITROGEN 10 mg/dL (7-18); eGFR NON AFRICAN AMERICAN 68 mL/min (90-120)
[2019-11-14 22:30] LABS: ALBUMIN 4.6 g/dL (3.4-5.0); ALKALINE PHOSPHATASE 103 U/L (30-120); ALT (SGPT) 24 U/L (10-68); LIPASE 51 U/L (73-393); PRO BNP 63 pg/mL (0-125); THYROID STIMULATING HORMONE 2.92 uIU/mL (0.36-3.74)
[2019-11-14 22:37] LABS: TROPONIN-I < 0.017 ng/mL (0.000-0.060)
[2019-11-14 23:12] VITALS: BP 129/68
== END 2019-11-14 23:12 | disposition home or self-care (01) ==
LOC: D.ER 21:18
PROVIDERS: Family Medicine
DX: R51 Headache (principal)

== ENCOUNTER 2019-11-21 12:43 | Emergency (ER) | payer MEDICARE, MEDICAID ==
[~2019-11-21] VITALS: Ht 154.9 cm; Wt 56.8 kg
[~2019-11-21 12:43] MED LIST changes: +NORVASC5 MG PO; +TOPAMAX100 MG PO
[2019-11-21 12:52] VITALS: Ht 154.9 cm; Wt 56.8 kg
[2019-11-21 16:19] LABS: CALC OSMOLALITY 276 mosm/kg (275-300); CALCIUM 8.6 mg/dL (8.5-10.1); CARBON DIOXIDE 19.1 mmol/L (21.0-32.0); CHLORIDE - SERUM 110 mmol/L (98-107); CREATININE - SERUM 0.7 mg/dL (0.6-1.3); GLUCOSE 95 mg/dL (74-106); POTASSIUM - SERUM 3.8 mmol/L (3.5-5.1); SODIUM 139 mmol/L (136-145); UREA NITROGEN 11 mg/dL (7-18); eGFR NON AFRICAN AMERICAN > 90 mL/min (90-120)
[2019-11-21 16:34] LABS: ALBUMIN 4.2 g/dL (3.4-5.0); ALKALINE PHOSPHATASE 88 U/L (30-120); ALT (SGPT) 15 U/L (10-68); BILIRUBIN - TOTAL 0.22 mg/dL (0.2-1.3); CKMB 0.2 U/L (0.0-3.6); CREATINE KINASE 52 UL (21-215); PROTEIN - SERUM 6.8 g/dL (6.4-8.2); TROPONIN-I < 0.017 ng/mL (0.000-0.060)
[2019-11-21 18:36] VITALS: BP 139/78
== END 2019-11-21 18:38 | disposition home or self-care (01) ==
LOC: D.ER 12:43
PROVIDERS: Family Medicine
DX: R55 Syncope and collapse (principal); R07.9 Chest pain, unspecified

== ENCOUNTER → 2019-11-27 08:55 | Outpatient (CLI) | payer MEDICARE, MEDICAID ==
[2019-11-21 12:52] VITALS: BMI 23.6
== END | disposition home or self-care (01) ==
LOC: D.HCCECHO 08:55
PROVIDERS: ATTEND Internal Medicine Cardiovascular Disease
DX: I34.0 Nonrheumatic mitral (valve) insufficiency (principal)

== ENCOUNTER 2019-12-15 10:14 | Emergency (ER) | payer MEDICARE, MEDICAID ==
[~2019-12-15] VITALS: Ht 154.9 cm; Wt 56.8 kg
[2019-12-15 10:22] VITALS: Ht 154.9 cm; Wt 56.8 kg
[2019-12-15 10:44] LABS: BASOPHILS 0.3 % (0-2); EOSINOPHILS 2.6 % (0-7); HEMATOCRIT 34.7 % (36.0-48.0); HEMOGLOBIN 11.1 g/dL (12-16); IMMATURE GRANULOCYTES 0.2 % (0-5); LYMPHOCYTES 12.5 % (15-50); MCH 27.4 pg (26.0-34.0); MCV 85.7 fL (80.0-100.0); MEAN PLATELET VOLUME 9.7 fL (7.4-10.4); MONOCYTES 7.1 % (2-11); NEUTROPHILS 77.3 % (40-80); PLATELET COUNT 293 10x3/uL (130-400); RBC 4.05 10x6/uL (4.00-5.40); RDW 14.1 % (11.5-14.5); WBC 9.9 10x3/uL (4.8-10.8)
[2019-12-15 10:52] LABS: CALC OSMOLALITY 284 mosm/kg (275-300); CARBON DIOXIDE 23.2 mmol/L (21.0-32.0); CHLORIDE - SERUM 109 mmol/L (98-107); CREATININE - SERUM 0.8 mg/dL (0.6-1.3); GLUCOSE 106 mg/dL (74-106); POTASSIUM - SERUM 3.4 mmol/L (3.5-5.1); SODIUM 142 mmol/L (136-145); UREA NITROGEN 17 mg/dL (7-18); eGFR NON AFRICAN AMERICAN 78 mL/min (90-120)
[2019-12-15 10:53] LABS: APTT 29.8 SECONDS (22.8-39.4); INR 0.97 (0.85-1.17); PROTIME 12.8 SECONDS (11.6-15.0)
[2019-12-15 11:09] LABS: ALBUMIN 4.1 g/dL (3.4-5.0); ALKALINE PHOSPHATASE 91 U/L (30-120); ALT (SGPT) 19 U/L (10-68); CKMB 0.6 U/L (0.0-3.6); CREATINE KINASE 65 UL (21-215); PROTEIN - SERUM 7.4 g/dL (6.4-8.2); TROPONIN-I < 0.017 ng/mL (0.000-0.060)
[2019-12-15 14:38] LABS: CKMB 1.2 U/L (0.0-3.6); CREATINE KINASE 64 UL (21-215); TROPONIN-I < 0.017 ng/mL (0.000-0.060)
[2019-12-15 15:20] VITALS: BP 128/64
== END 2019-12-15 15:20 | disposition home or self-care (01) ==
LOC: D.ER 10:14
PROVIDERS: Family Medicine
DX: R07.9 Chest pain, unspecified (principal); G43.909 Migraine, unspecified, not intractable, without status migrainosus; I48.91 Unspecified atrial fibrillation

== ENCOUNTER 2020-07-20 11:08 | Emergency (ER) | payer OTHER, MEDICAID ==
[~2020-07-20] VITALS: Ht 154.9 cm; Wt 57.7 kg
[2020-07-20 11:17] VITALS: Ht 154.9 cm; Wt 57.7 kg
[2020-07-20] MEDS ORDERED: ZANAFLEX2 M1 PO (11:22)
[2020-07-20] MEDS ORDERED: STERAPRED 5MG 125 MG PO (11:22)
[2020-07-20 12:06] LABS: BASOPHILS 0.3 % (0-2); EOSINOPHILS 0.5 % (0-7); HEMATOCRIT 35.5 % (36.0-48.0); HEMOGLOBIN 11.7 g/dL (12-16); IMMATURE GRANULOCYTES 0.5 % (0-5); LYMPHOCYTE ABS# 2.49 10x3/uL (1.18-3.74); LYMPHOCYTES 23.6 % (15-50); MCH 28.7 pg (26.0-34.0); MCV 87.2 fL (80.0-100.0); MEAN PLATELET VOLUME 10.8 fL (7.4-10.4); MONOCYTES 8.7 % (2-11); NEUTROPHIL ABS# 7.01 10x3/uL (1.56-6.13); NEUTROPHILS 66.4 % (40-80); PLATELET COUNT 296 10x3/uL (130-400); RBC 4.07 10x6/uL (4.00-5.40); RDW 13.8 % (11.5-14.5); WBC 10.6 10x3/uL (4.8-10.8)
[2020-07-20] MEDS ORDERED: CLEOCIN HCL300 MG PO (12:08)
[2020-07-20] MEDS ORDERED: CYCLOBENZAPRINE10 MG PO (12:08)
[2020-07-20] MEDS ORDERED: CEPHALEXIN500 M1 PO (12:08)
[2020-07-20] MEDS ORDERED: IBUPROFEN800 MG PO (12:08)
[2020-07-20] MEDS ORDERED: ACETAMINOPHEN500 M1 PO (12:08)
[2020-07-20 12:16] LABS: APTT 26.5 SECONDS (22.8-39.4); INR 1.01 (0.85-1.17); PROTIME 12.3 SECONDS (11.6-15.0)
[2020-07-20 12:21] LABS: CALC OSMOLALITY 283 mosm/kg (275-300); CALCIUM 9.2 mg/dL (8.5-10.1); CARBON DIOXIDE 25.7 mmol/L (21.0-32.0); CHLORIDE - SERUM 105 mmol/L (98-107); CREATININE - SERUM 0.7 mg/dL (0.6-1.3); GLUCOSE 90 mg/dL (74-106); POTASSIUM - SERUM 3.5 mmol/L (3.5-5.1); SODIUM 142 mmol/L (136-145); UREA NITROGEN 14 mg/dL (7-18); eGFR NON AFRICAN AMERICAN > 90 mL/min (90-120)
[2020-07-20 12:37] LABS: ALBUMIN 4.4 g/dL (3.4-5.0); ALKALINE PHOSPHATASE 88 U/L (30-120); ALT (SGPT) 47 U/L (10-68); BILIRUBIN - TOTAL 0.24 mg/dL (0.2-1.3); CKMB 0.6 U/L (0.0-3.6); CREATINE KINASE 81 UL (21-215); MAGNESIUM - SERUM 2.1 mg/dL (1.8-2.4); PROTEIN - SERUM 7.5 g/dL (6.4-8.2)
[2020-07-20 12:40] LABS: TROPONIN-I < 0.017 ng/mL (0.000-0.060)
[2020-07-20 13:18] VITALS: BP 153/69
== END 2020-07-20 13:07 | disposition home or self-care (01) ==
LOC: D.ER 11:08
PROVIDERS: Family Medicine
DX: N64.4 Mastodynia (principal); S20.112A Abrasion of breast, left breast, initial encounter

== ENCOUNTER 2020-07-22 10:30 | Outpatient (CLI) | payer OTHER, MEDICAID ==
[2020-07-20 11:17] VITALS: BMI 24.0
[~2020-07-22 10:30] MED LIST changes: +ACETAMINOPHEN500 M1 PO; +CEPHALEXIN500 M1 PO; +CLEOCIN HCL300 MG PO; +CYCLOBENZAPRINE10 MG PO; +IBUPROFEN800 MG PO; +STERAPRED 5MG 125 MG PO; +ZANAFLEX2 M1 PO
== END 2020-07-22 23:59 | disposition home or self-care (01) ==
LOC: D.MAMMO 10:30
PROVIDERS: ATTEND Family Medicine
DX: Z12.31 Encounter for screening mammogram for malignant neoplasm of breast (principal)